=== PATIENT | female | born 1985 | race Caucasian/White ===

== ENCOUNTER → 2017-05-21 | Outpatient (CLI) | payer OTHER ==
[2017-05-21 09:41] LABS: HEMATOCRIT 40.9 % (37-47); MEAN CELL VOLUME 88.3 fL (80-100); MEAN CORPUSCULAR HEMOGLOBIN 29.8 pg (25-34); MEAN CORPUSCULAR HGB CONC 33.7 g/dl (32-36); MEAN PLATELET VOLUME 10.9 fL (7.4-10.4); PLATELET COUNT 274 K/uL (130-400); RED BLOOD COUNT 4.63 M/uL (4.2-5.4); WHITE BLOOD COUNT 6.12 K/uL (4.8-10.8)
[2017-05-21 10:07] LABS: BLOOD UREA NITROGEN 15 mg/dl (7-18); CREATININE 0.84 mg/dl (0.60-1.20); GLUCOSE 74 mg/dl (70-99)
[2017-05-21 10:08] LABS: ALT/SGPT 17 U/L (12-78); AST/SGOT 17 U/L (15-37); BUN/CREATININE RATIO 17.4 (10-20); CALCIUM 9.1 mg/dl (8.5-10.1); CARBON DIOXIDE 28 mmol/L (21-32); CHLORIDE 106 mmol/L (98-107); SODIUM 139 mmol/L (136-145)
[2017-05-21 10:10] LABS: ALB/GLOB RATIO 1.1 (0.9-2); ALKALINE PHOSPHATASE 68 U/L (45-117)
== END | disposition home or self-care (01) ==
LOC: C.LAB 08:03
PROVIDERS: ATTEND Family Medicine
DX: F41.9 Anxiety disorder, unspecified (principal); F60.3 Borderline personality disorder; F39 Unspecified mood [affective] disorder; B19.20 Unspecified viral hepatitis C without hepatic coma